=== PATIENT | male | born 1995 | race Caucasian/White ===

== ENCOUNTER 2018-12-10 19:42 | Emergency (ER) | payer OTHER ==
[~2018-12-10] VITALS: Wt 69.4 kg
[2018-12-10 19:58] VITALS: BP 126/71; PULSE 96; RESP 18
[2018-12-10] MEDS ORDERED: HYDROCODONE/APAP (5/325) TAB PO ONE (23:30)
[2018-12-10] MEDS ORDERED: IBUP800T48 PO (23:39)
[2018-12-10] MEDS ORDERED: CYCL10TA7 PO (23:39)
--- NOTE | 2018-12-10 23:39 | ERD ---
ER Documentation Chief Complaint Chief Complaint R SHOULDER PAIN, HX OF DISLOCATION HPI 23-year-old male presents with right shoulder pain. He thinks that while he was at work he may have moved in a way that his right shoulder dislocated. He is dislocated in the past. When this happened he laid down and tried to pop it back in the place and he thinks he may have positive back in the place but continues to have pain and limited range of motion secondary to the pain. He has not taken any medication for pain. No numbness or tingling. ROS All systems reviewed and are negative except as per history of present illness. Allergies Allergies: Coded Allergies: No Known Allergy (Unverified , 12/10/18) PMhx/Soc Medical and Surgical Hx: pt denies Surgical Hx Hx Miscellaneous Medical Probl: Yes (shoulder dislocation) Hx Alcohol Use: Yes (occasionally) Hx Substance Use: Yes (marijuana occasionally) Hx Tobacco Use: No Smoking Status: Never smoker FmHx Family History: No diabetes Physical Exam Vitals Vital Signs Date Temp Pulse Resp B/P (MAP) Pulse Ox O2 O2 Flow FiO2 Time Delivery Rate 12/10/18 99.0 96 18 126/71 100 19:58 (89) Physical Exam Const: No acute distress Head: Atraumatic Resp: Clear to auscultation bilaterally Cardio: Regular rate and rhythm, no murmurs Upper Extremity -right: Skin: No laceration, or evidence of external trauma Compartments: Soft Motor: Full active range of motion shoulder/elbow/wrist/hand Sensation: Intact shoulder/pinky/middle finger/thumb web space Bones: Nontender humerus/elbow/forearm/wrist/hand Snuffbox: Nontender Joints: No effusion Pulses/Perfusion: 2+ radial, Capillary refill < 2 seconds Results 24 hrs Current Medications Medications Dose Sig/[place] Start Time Status Last (Trade) Ordered Route PRN Stop Time Admin Dose Reason Admin 1 tab ONCE ONCE 12/10/18 DC 12/10/18 Acetaminophen PO 23:30 23:12 / 12/10/18 23:31 Hydrocodone Bitart ([place] (5/325)) Procedures/MDM Patient has shoulder pain. He has a history of shoulder dislocation. His x-ray today is negative. He is neurovascularly intact. He was given [place] here. Prescription for ibuprofen and Flexeril given for home. Patient counseled regarding my diagnostic impression and care plan. Prior to discharge all questions answered. Pt agrees with treatment plan and understands strict return precautions. Pt is instructed to follow up with primary care provider within 24- 48 hours. Precautionary instructions provided including instructions to return to the ER if not improving or for any worsening or changing symptoms or concerns. Departure Diagnosis: Primary Impression: Shoulder pain Condition: Stable MARIO SLOAN PA-C Dec 10, 2018 23:38
== END 2018-12-11 | disposition home or self-care (01) ==
LOC: FTE 19:42
DX: M25.511 Pain in right shoulder (principal)
CPT/HCPCS: 73030; Z7502; Z7610

== ENCOUNTER 2019-04-14 03:04 | Emergency (ER) | payer OTHER ==
[~2019-04-14] VITALS: Ht 165.1 cm; Wt 68.6 kg
[~2019-04-14 03:04] MED LIST: CYCL10TA7 PO; IBUP800T48 PO
[2019-04-14 03:16] VITALS: Ht 165.1 cm; Wt 68.6 kg
[2019-04-14] MEDS ORDERED: HYDROCODONE/APAP (5/325) TAB PO ONE (04:00)
--- NOTE | 2019-04-14 04:12 | ERD ---
ER Documentation Chief Complaint Chief Complaint R SHOULDER PAIN, WOKE FROM SLEEPING WITH PAIN HPI 24-year-old male presents to the emergency department with his father planing of right shoulder pain which woke him from sleep just prior to arrival. Pain is severe and constant and worse with movement of the right shoulder. He tried no medication for relief of symptoms. He denies any falls, trauma, or other injuries or symptoms at this time. ROS All systems reviewed and are negative except as per history of present illness. Medications Home Meds Active Scripts Ibuprofen* (Motrin*) 600 Mg Tab, 600 MG PO Q8 PRN for PAIN AND/OR INFLAMMATION, #30 TAB Prov:TALIB CISSE MD 04/14/19 Ibuprofen* (Motrin*) 800 Mg Tab, 800 MG PO Q6, #30 TAB Prov:MARIO SLOAN PA-C 12/10/18 Cyclobenzaprine Hcl* (Cyclobenzaprine Hcl*) 10 Mg Tablet, 10 MG PO BID, #15 TAB Prov:MARIO SLOAN PA-C 12/10/18 Allergies Allergies: Coded Allergies: No Known Allergy (Unverified , 12/10/18) PMhx/Soc Hx Miscellaneous Medical Probl: Yes (shoulder dislocation) Hx Alcohol Use: Yes (occasionally) Hx Substance Use: Yes (marijuana occasionally) Hx Tobacco Use: No FmHx Family History: No diabetes Physical Exam Vitals Vital Signs Date Temp Pulse Resp B/P (MAP) Pulse Ox O2 O2 Flow FiO2 Time Delivery Rate 04/14/19 97.8 69 18 138/83 100 03:16 (101) Physical Exam Const: No acute distress Head: Atraumatic Eyes: Normal Conjunctiva ENT: Normal External Ears, Nose and Mouth. Neck: Full range of motion. No meningismus. Resp: No respiratory distress. Skin: No petechiae or rashes Ext: Tenderness palpation of the right anterior shoulder. Limited range of motion secondary to pain. Patient is neurovascularly intact to the right upper extremity. 2+ radial pulses to the right upper extremity. Neur: Awake and alert Psych: Normal Mood and Affect Results 24 hrs Current Medications Medications Dose Sig/[place] Start Time Status Last (Trade) Ordered Route PRN Stop Time Admin Dose Reason Admin 1 tab ONCE ONCE 04/14/19 DC 04/14/19 Acetaminophen PO 04:00 04/14/19 04:25 / 04:01 Hydrocodone Bitart ([place] (5/325)) Ketorolac 30 mg ONCE STAT 04/14/19 DC Tromethamine IM 04:51 04/14/19 (Toradol) 04:52 Procedures/MDM 24-year-old male presenting with right shoulder pain. X-ray today was negative. History and physical exam and work-up most consistent with right shoulder strain. Low suspicion for fracture, compartment syndrome, ligamental or tendon injury, DVT, or other emergencies. She will be discharged home with a prescription for naproxen and advised to follow-up with his primary care physician and orthopedic physician if indicated. I shared medical decision making with the patient and he understands and agrees with plan. Patient's blood pressure was elevated (>120/80) but appears stable without evidence of hypertension emergency or urgency. The patient is to follow-up and pursue outpatient monitoring and therapy with their primary care physician within 1 week and return immediately if they have any new, worsening, or concerning symptoms. Departure Diagnosis: Primary Impression: Shoulder pain Chronicity: acute Laterality: right Qualified Codes: M25.511 - Pain in right shoulder Condition: Fair Patient Instructions: Shoulder Problems Additional Instructions: Follow up with your PCP within the next 1-3 days for a repeat evaluation. If you require a referral to a specialist, your Primary Care Provider may be able to provide this for you. In most patient cases, a referral is not required. If you have further questions regarding this matter, please ask your Primary Care Provider. Return the the emergency department immediately if symptoms worsen or change. If you have any questions regarding medications, ask your pharmacist or us before you leave. If any adverse reactions, occur while taking your medications, discontinue the treatment and return to the emergency department immediately. If any new or worsening symptoms, uncontrolled fevers, or other unexplained symptoms occur, return to the emergency department immediately. Take your medications as directed, and complete the entire course of treatment. DANYELL WORRELL PA-C Apr 14, 2019 04:12
[2019-04-14] MEDS ORDERED: KETOROLAC 30 MG INJ IM STA (04:51)
[2019-04-14] MEDS ORDERED: IBUP-1542 PO (04:52)
--- NOTE | 2019-04-14 05:02 | ERD ---
ER Documentation Chief Complaint Chief Complaint R SHOULDER PAIN, WOKE FROM SLEEPING WITH PAIN HPI 24-year-old male presents to the emergency department with his father complaining of right shoulder pain which woke him from sleep just prior to arrival. Pain is severe and constant and worse with attempts to move the right shoulder. Patient denies paresis or paresthesias and states he had a similar episode a few months ago while sleeping but at that time he was able to reduce the shoulder himself ROS All systems reviewed and are negative except as per history of present illness. Medications Home Meds Active Scripts Ibuprofen* (Motrin*) 600 Mg Tab, 600 MG PO Q8 PRN for PAIN AND/OR INFLAMMATION, #30 TAB Prov:TALIB CISSE MD 04/14/19 Ibuprofen* (Motrin*) 800 Mg Tab, 800 MG PO Q6, #30 TAB Prov:MARIO SLOAN PA-C 12/10/18 Cyclobenzaprine Hcl* (Cyclobenzaprine Hcl*) 10 Mg Tablet, 10 MG PO BID, #15 TAB Prov:MARIO SLOAN PA-C 12/10/18 Allergies Allergies: Coded Allergies: No Known Allergy (Unverified , 12/10/18) PMhx/Soc Medical and Surgical Hx: pt denies Medical Hx, pt denies Surgical Hx Hx Miscellaneous Medical Probl: Yes (shoulder dislocation) Hx Alcohol Use: Yes (occasionally) Hx Substance Use: Yes (marijuana occasionally) Hx Tobacco Use: No Smoking Status: Never smoker FmHx Family History: No diabetes Physical Exam Vitals Vital Signs Date Temp Pulse Resp B/P (MAP) Pulse Ox O2 O2 Flow FiO2 Time Delivery Rate 04/14/19 97.8 69 18 138/83 100 03:16 (101) Physical Exam GENERAL: Well-developed, well-nourished, moderate discomfort, afebrile NEURO: Alert and oriented 3, cranial nerves II through XII intact bilaterally, pupils equal round reactive to light, no focal deficits or facial asymmetry CARDIAC: Regular rate and rhythm, no murmurs rubs or gallops LUNGS: Clear bilaterally no wheezing crackles or stridor EXTREMITIES: No clubbing cyanosis or edema, right shoulder is squared off with soft tissue deformity concerning for a glenohumeral dislocation on the right, distal pulses equal bilateral, no bony tenderness. No soft tissue ecchymosis or hematomas noted Results 24 hrs Current Medications Medications Dose Sig/[place] Start Time Status Last (Trade) Ordered Route PRN Stop Time Admin Dose Reason Admin 1 tab ONCE ONCE 04/14/19 DC 04/14/19 Acetaminophen PO 04:00 04/14/19 04:25 / 04:01 Hydrocodone Bitart ([place] (5/325)) Ketorolac 30 mg ONCE STAT 04/14/19 DC 04/14/19 Tromethamine IM 04:51 04/14/19 04:55 (Toradol) 04:52 Procedures/MDM Patient was given [place] 1 tablet p.o. in the ER. Three-view x-ray of the right shoulder was performed and read by me it revealed an anterior subglenoid glenohumeral dislocation, no acute fracture noted Manual reduction was performed by me at the bedside with gentle abduction, traction, and external rotation. Patient tolerated procedure well and manual reduction was successful. I palpated the humerus relocating back into the glenoid socket. Patient then had full range of motion at the right shoulder without difficulty and felt the reduction himself. Right upper extremity was placed in a shoulder immobilizer for comfort and supportive measures. Splint Assessment: Neurovascularly intact post splint placement with good fit. No further imaging indicated as I am confident successful reduction was achieved. I administered Toradol 30 mg IM x1 for continued pain control. Patient feels much better at this time, and vital signs are normal, symptoms have improved. I did give strict instructions to return to the ED if symptoms continue or worsen, patient will otherwise follow-up with primary care physician. Patient understood instructions and agreed to plan. Disclaimer: Inadvertent spelling and grammatical errors are likely due to EHR/dictation software use and do not reflect on the overall quality of patient care. Also, please note that the electronic time recorded on this note does not necessarily reflect the actual time of the patient encounter. Departure Diagnosis: Primary Impression: Anterior shoulder dislocation Encounter type: initial encounter Laterality: right Qualified Codes: S43.014A - Anterior dislocation of right humerus, initial encounter Ruled Out: Shoulder pain Condition: Good Patient Instructions: Dislocation: Shoulder (Reduced) Referrals: KETAN LAZO DO (PCP) Additional Instructions: Follow up with your PCP within the next 1-3 days for a repeat evaluation. If you require a referral to a specialist, your Primary Care Provider may be able to provide this for you. In most patient cases, a referral is not required. If you have further questions regarding this matter, please ask your Primary Care Provider. Return the the emergency department immediately if symptoms worsen or change. If you have any questions regarding medications, ask your pharmacist or us before you leave. If any adverse reactions, occur while taking your medications, discontinue the treatment and return to the emergency department immediately. If any new or worsening symptoms, uncontrolled fevers, or other unexplained symptoms occur, return to the emergency department immediately. Take your medications as directed, and complete the entire course of treatment. TALIB CISSE MD Apr 14, 2019 05:02
[2019-04-14 05:31] VITALS: BP 134/63; PULSE 78; RESP 16
== END 2019-04-14 05:36 | disposition home or self-care (01) ==
LOC: FTE 03:04 → E/R 05:36
DX: S43.014A Anterior dislocation of right humerus, initial encounter (principal); X58.XXXA Exposure to other specified factors, initial encounter; Y92.9 Unspecified place or not applicable
CPT/HCPCS: 23650; 73030; 96372; J1885; Z7502; Z7610